=== PATIENT | female | born 1925 | race Caucasian/White ===

== ENCOUNTER 2016-08-01 08:51 | Outpatient (CLI) | payer MEDICARE, OTHER ==
--- NOTE | 2016-08-01 14:13 | Diagnostic Imaging Report ---
[facility] [address] [facility].[address] [address] Report Submission Date: Aug 01, 2016 9:35:31 AM SPECIAL OFFICER AUTOMAT Patient Study Name: BLADIMIR MEDINA Date: Aug 01, 2016 9:08:27 AM SPECIAL OFFICER AUTOMAT Modality Type: CT\SR Gender: F Description: CT BRAIN W/O CONTRAST : [birth year] Institution: [facility] Physician: TERE CALHOUN Head CT without contrast Clinical history: Fall last April. Continues headaches. Vertigo. Technique: CT examination of the brain is performed in contiguous axial slices without the use of contrast. Sagittal and coronal reconstructions are performed by the technologist. Findings: The fourth ventricle lies in a normal midline position. The ventricles and sulci are prominent secondary to atrophy. Chronic ischemic changes are present in the periventricular regions. There is no hypodense or hyperdense mass or intracranial hemorrhage. The visualized paranasal sinuses and the mastoid air cells are clear. Impression: 1. Atrophy and chronic small vessel ischemic changes. 2. Intracranial atherosclerosis. 3. No acute intracranial changes. Electronically signed on Aug 01, 2016 9:35:31 AM SPECIAL OFFICER [employer]OMAT by: Anselmo QUAN
--- NOTE | 2016-08-01 14:14 | Diagnostic Imaging Report ---
[facility] [address] [facility].[address] [id number] Report Submission Date: Aug 01, 2016 12:20:08 PM AUTOMATION DESIGN ENGINEER Patient Study Name: BLADIMIR MEDINA Date: Aug 01, 2016 9:28:51 AM AUTOMATION DESIGN ENGINEER Modality Type: US Gender: F Description: DPLX SCN XTRCRAN ART CMP MAXIMO : [birth year] Institution: [facility] Physician: TERE CALHOUN Carotid ultrasound Clinical history: Carotid bruit. Vertigo. Technique: Real time sonography of the carotid and vertebral arteries is performed in transverse and longitudinal views. Doppler interrogation and color flow imaging are additionally used. Findings: Intimal thickening is evident in the common carotid arteries bilaterally. There is minimal echogenic plaque in the region of the carotid bulbs. No significant stenosis is evident on the elmore scale images. The Doppler waveforms are within normal limits without significant spectral broadening. The internal carotid peak velocities measure 62 cm/sec on the right and 77 cm/sec on the left with an internal carotid to common carotid artery ratio of 0.5 bilaterally. The vertebral arteries demonstrate normal cephalad flow. There is elevation of the left external carotid peak velocity to 165 cm/sec. Impression: 1. Minimal plaque formation. 2. Bilateral less than 50% internal carotid stenosis. The degree of carotid stenosis is estimated using the Society of Radiologists in Ultrasound consensus conference of 2003 criteria. Electronically signed on Aug 01, 2016 12:20:08 PM AUTOMATION DESIGN ENGINEER by: Anselmo QUAN
== END 2016-08-01 08:52 ==
LOC: RAD 08:51
PROVIDERS: ATTEND Family Medicine
DX: R09.89 Other specified symptoms and signs involving the circulatory and respiratory systems (principal); S00.93XA Contusion of unspecified part of head, initial encounter
CPT/HCPCS: 70450; 93880

== ENCOUNTER 2016-09-18 07:23 | Outpatient (CLI) | payer MEDICARE, OTHER ==
--- NOTE | 2016-09-18 09:36 | PAIN CLINIC PROGRESS NOTES ---
REFERRING PHYSICIAN: Dr. Vincent Brosnon REASON FOR VISIT: I had the opportunity of following up with Nicole Blake today as an outpatient at [facility]. This is a delightful 89-year- old white female I saw on June 19, 2016, and she was having back and left lower extremity pain. At that point, I placed an L5-S1 epidural steroid injection for sciatica and radiculitis and she comes in today and says that she is markedly improved. She thought that the injection was placed much longer ago. She does get some limitation when she is on her feet for extended periods of time but she is really doing quite well and she does not feel that she needs any further treatment. ASSESSMENT: Lumbar radiculitis, now improved. PLAN: Follow up on an as needed basis. Thank you very much for allowing me to take part in the care of this nice lady. I appreciate the opportunity to take part in the care of your patients. cc: Dr. Vincent QUAN
== END 2016-09-18 07:24 ==
LOC: OUT 07:23
PROVIDERS: ATTEND Anesthesiology Pain Medicine
DX: M54.5 Low back pain (principal)
CPT/HCPCS: 99213; G0463